=== PATIENT | male | born 1955 | race Asian ===

== ENCOUNTER 2024-06-07 17:29 | Inpatient (IN) | payer BC, MEDICARE ==
[~2024-06-07] VITALS: Ht 170.2 cm; Wt 81.8 kg
[2024-06-07] MEDS ORDERED: NS 1,000 ML IV ONE ×2 (18:30→20:45)
[2024-06-07 19:34] LABS: BASO # 0.1 K/mm3 (0.0-0.2); BASO % 0.3 % (0.0-2.0); GRAN # 14.6 K/mm3 (1.4-6.5); GRAN % 85.8 % (42.2-75.2); HEMATOCRIT 39.2 % (42.0-52.0); HEMOGLOBIN 13.3 g/dl (13.5-18.0); LYMPH # 0.9 K/mm3 (1.2-3.4); LYMPH % 5.1 % (20.0-51.0); MEAN CELL VOLUME 89 fl (80.0-100.0); MEAN CORPUSCULAR HEMOGLOBIN 30 pg (27-31); MEAN CORPUSCULAR HGB CONC 34 g/dl (33.0-37.0); MEAN PLATELET VOLUME 10.8 fl (7.4-10.4); MONO # 1.4 K/mm3 (0.1-0.6); MONO % 8.2 % (1.7-9.3); PLATELET COUNT 163 K/mm3 (130-400); RED BLOOD COUNT 4.43 M/mm3 (4.20-5.60); REDCELL DISTRIBUTION WIDTH-CV 13.6 % (11.5-14.5)
[2024-06-07 19:34] LABS: BILIRUBIN,TOTAL 1.6 mg/dL (0.2-1.2); CALCIUM 9.5 mg/dL (8.4-10.2); CREATININE, serum 1.21 mg/dL (0.72-1.25)
[2024-06-07 19:35] LABS: POTASSIUM 2.6 mEq/L (3.5-4.5)
[2024-06-07] MEDS ORDERED: Potassium Chloride 100 ML IV ONE ×2 (19:45→21:30)
[2024-06-07 20:15] LABS: COLLECTION METHOD CLEAN CATCH; URINE APPEARANCE Cloudy (CLEAR/HAZY); URINE BLOOD 3+ (NEGATIVE); URINE COLOR YELLOW (YELLOW); URINE GLUCOSE Negative (NEGATIVE); URINE KETONE Negative (NEGATIVE); URINE NITRATE Negative (NEGATIVE); URINE PROTEIN(semi-quant) 1+ (NEGATIVE); URINE UROBILINOGEN 0.2 E.U/dL (0.2-1.0)
[2024-06-07] MEDS ORDERED: cefTRIAXone 1 G in Water For Injection,Sterile 10 ML IV ONE (20:30)
[2024-06-07] MEDS ORDERED: Potassium Bicarbonate/Citrate 20 MEQ Effervescent TAB PO SCH (21:15)
[2024-06-07] MEDS ORDERED: Acetaminophen 325 MG TAB PO PRN (21:15)
[2024-06-07] MEDS ORDERED: *Potassium Replacement Protocol MC SCH (21:15)
[2024-06-07] MEDS ORDERED: NS 1,000 ML IV SCH (21:15)
[2024-06-07 22:47] VITALS: BP 167/104; PULSE 97; TEMP 98.6
[2024-06-07] MEDS ORDERED: hydrALAZINE 20 MG/ML 1 ML VIAL IV PRN (23:30)
[2024-06-07] MEDS ORDERED: Aspirin 325 MG TAB PO ONE (23:30)
[2024-06-07] MEDS ORDERED: Metoprolol Tartrate 25 MG TAB PO SCH (23:30)
[2024-06-07] MEDS ORDERED: Atorvastatin 40 MG TAB PO SCH (23:45)
[2024-06-07 23:50] VITALS: BP 170/96; PULSE 94; TEMP 98.4
[2024-06-08] VITALS (19 sets, daily range): BP systolic 80–176; BP diastolic 81–105; PULSE 71–95; TEMP 98.2–100.3
[2024-06-08 03:08] LABS: BASO # 0.1 K/mm3 (0.0-0.2); BASO % 0.3 % (0.0-2.0); EOS % 0.1 % (0.0-4.0); GRAN # 12.3 K/mm3 (1.4-6.5); GRAN % 83.7 % (42.2-75.2); HEMATOCRIT 37.6 % (42.0-52.0); MEAN CELL VOLUME 87 fl (80.0-100.0); MEAN CORPUSCULAR HEMOGLOBIN 30 pg (27-31); MEAN CORPUSCULAR HGB CONC 35 g/dl (33.0-37.0); MEAN PLATELET VOLUME 10.7 fl (7.4-10.4); MONO # 1.3 K/mm3 (0.1-0.6); MONO % 8.6 % (1.7-9.3); PLATELET COUNT 158 K/mm3 (130-400); RED BLOOD COUNT 4.32 M/mm3 (4.20-5.60); REDCELL DISTRIBUTION WIDTH-CV 13.4 % (11.5-14.5)
[2024-06-08 03:28] LABS: CALCIUM 8.6 mg/dL (8.4-10.2); CREATININE, serum 0.9 mg/dL (0.72-1.25); POTASSIUM 3.1 mEq/L (3.5-4.5)
[2024-06-08 03:40] LABS: TROPONIN-I 6 HR POST INITIAL 0.056 ng/mL (0.00-0.033)
[2024-06-08] MEDS ORDERED: Potassium Bicarbonate/Citrate 20 MEQ Effervescent TAB PO SCH (04:00)
[2024-06-08] MEDS ORDERED: ADVIL200 MG PO (08:55)
[2024-06-08] MEDS ORDERED: 1/2 NS 1,000 ML IV SCH ×2 (10:00→17:30)
[2024-06-08] MEDS ORDERED: Heparin 1,000 UNITS/ML 10 ML Multi-Dose VIAL IA SCH (17:01)
[2024-06-08] MEDS ORDERED: Nitroglycerin 100 MCG/ML (Cath Lab) 10 ML VIAL IA SCH (17:02)
[2024-06-08] MEDS ORDERED: Verapamil 2.5 MG/ML 2 ML VIAL IA SCH (17:05)
[2024-06-08] MEDS ORDERED: Heparin 1,000 UNITS/ML 10 ML Multi-Dose VIAL IV SCH (17:06)
[2024-06-08] MEDS ORDERED: Midazolam 2 MG/2 ML VIAL IV SCH (17:23)
[2024-06-08] MEDS ORDERED: fentaNYL 50 MCG/ML 2 ML VIAL IV SCH (17:24)
[2024-06-08] MEDS ORDERED: Isosorbide Mononitrate CR (24-HR) 60 MG TAB PO SCH (17:32)
[2024-06-08] MEDS ORDERED: cefTRIAXone 2 G in Water For Injection,Sterile 20 ML IV SCH (20:00)
[2024-06-08] MEDS ORDERED: Metoprolol Tartrate 50 MG TAB PO SCH (21:00)
[2024-06-08] MEDS ORDERED: Atorvastatin 80 MG TAB PO SCH (21:00)
[2024-06-09] VITALS (17 sets, daily range): BP systolic 132–162; BP diastolic 62–90; PULSE 71–86; TEMP 99.3–103
[2024-06-09 06:57] LABS: CALCIUM 9.1 mg/dL (8.4-10.2); CREATININE, serum 1.03 mg/dL (0.72-1.25)
[2024-06-09] MEDS ORDERED: Potassium Bicarbonate/Citrate 20 MEQ Effervescent TAB PO SCH (08:00)
[2024-06-09] MEDS ORDERED: *Potassium Replacement Protocol MC SCH (08:00)
[2024-06-09 08:42] LABS: BASO % 0.3 % (0.0-2.0); EOS % 0.1 % (0.0-4.0); GRAN # 6.3 K/mm3 (1.4-6.5); GRAN % 87.2 % (42.2-75.2); HEMOGLOBIN 12.3 g/dl (13.5-18.0); LYMPH # 0.3 K/mm3 (1.2-3.4); LYMPH % 4.6 % (20.0-51.0); MEAN CELL VOLUME 90 fl (80.0-100.0); MEAN CORPUSCULAR HEMOGLOBIN 30 pg (27-31); MEAN CORPUSCULAR HGB CONC 34 g/dl (33.0-37.0); MEAN PLATELET VOLUME 11.1 fl (7.4-10.4); MONO # 0.6 K/mm3 (0.1-0.6); MONO % 7.7 % (1.7-9.3); RED BLOOD COUNT 4.07 M/mm3 (4.20-5.60); REDCELL DISTRIBUTION WIDTH-CV 13.7 % (11.5-14.5)
[2024-06-09 09:25] LABS: HEMATOCRIT 36.7 % (42.0-52.0)
[2024-06-09 09:26] LABS: PLATELET COUNT 155 K/mm3 (130-400)
[2024-06-10 03:50] VITALS: BP 163/78; PULSE 76; TEMP 100.1
[2024-06-10 03:53] VITALS: BP_SYST 163
[2024-06-10 06:31] LABS: BASO % 0.3 % (0.0-2.0); EOS % 0.7 % (0.0-4.0); GRAN # 4.1 K/mm3 (1.4-6.5); GRAN % 70.5 % (42.2-75.2); HEMOGLOBIN 11.3 g/dl (13.5-18.0); LYMPH # 0.7 K/mm3 (1.2-3.4); LYMPH % 12.7 % (20.0-51.0); MEAN CELL VOLUME 89 fl (80.0-100.0); MEAN CORPUSCULAR HEMOGLOBIN 30 pg (27-31); MEAN CORPUSCULAR HGB CONC 34 g/dl (33.0-37.0); MEAN PLATELET VOLUME 11.3 fl (7.4-10.4); MONO # 0.9 K/mm3 (0.1-0.6); MONO % 15.3 % (1.7-9.3); PLATELET COUNT 166 K/mm3 (130-400); RED BLOOD COUNT 3.78 M/mm3 (4.20-5.60); REDCELL DISTRIBUTION WIDTH-CV 13.3 % (11.5-14.5)
[2024-06-10 06:32] LABS: HEMATOCRIT 33.6 % (42.0-52.0)
[2024-06-10 06:36] LABS: CALCIUM 8.9 mg/dL (8.4-10.2); CREATININE, serum 1.05 mg/dL (0.72-1.25); POTASSIUM 3.2 mEq/L (3.5-4.5)
[2024-06-10 07:15] VITALS: BP 145/73; PULSE 70; TEMP 98.6
[2024-06-10 08:28] VITALS: BP_SYST 145
[2024-06-10] MEDS ORDERED: Potassium Bicarbonate/Citrate 20 MEQ Effervescent TAB PO SCH (09:00)
[2024-06-10 11:11] VITALS: BP 152/77; PULSE 70; TEMP 98.5
[2024-06-10] MEDS ORDERED: LIPITOR 80MG80 MG PO (11:59)
[2024-06-10] MEDS ORDERED: NS 100 ML IV SCH (11:59)
[2024-06-10] MEDS ORDERED: Iohexol 300 - 100 ML VIAL IV ONE (11:59)
[2024-06-10] MEDS ORDERED: ASPIRIN E.C. 8181 MG PO (11:59)
[2024-06-10] MEDS ORDERED: IMDUR 60MG60 MG/TAB PO (12:00)
[2024-06-10] MEDS ORDERED: LOPRESSOR 550 MG/TAB PO (12:02)
[2024-06-10] MEDS ORDERED: OMNICEF 300MG300 MG PO (12:03)
[2024-06-10] MEDS ORDERED: DOXYCYCLINE 10100 MG PO (12:04)
[2024-06-10 12:19] VITALS: BP_SYST 152
[2024-06-10] MEDS ORDERED: TYLENOL 325MG325 MG PO (13:23)
== END 2024-06-10 15:59 | disposition home or self-care (01) | DRG 871 ==
LOC: COL.ER 17:29 → MEDICAL 21:18
PROVIDERS: Family Medicine; Nurse Practitioner Family; Physician Assistant; ADMIT Internal Medicine
PROC: 4A023N7 Measurement of Cardiac Sampling and Pressure, Left Heart, Percutaneous Approach (ICD-10-PCS; principal; 2024-06-07)
PROC: B2111ZZ Fluoroscopy of Multiple Coronary Arteries using Low Osmolar Contrast (ICD-10-PCS; 2024-06-07)
DX: A41.9 Sepsis, unspecified organism (principal); I21.4 Non-ST elevation (NSTEMI) myocardial infarction; I16.1 Hypertensive emergency; I50.20 Unspecified systolic (congestive) heart failure; E87.1 Hypo-osmolality and hyponatremia; I25.10 Atherosclerotic heart disease of native coronary artery without angina pectoris; E87.6 Hypokalemia; E87.8 Other disorders of electrolyte and fluid balance, not elsewhere classified; D64.9 Anemia, unspecified; I11.0 Hypertensive heart disease with heart failure
CPT/HCPCS: C1769; G0378; J0360; J0696; J1644; J1650; J2250; J3010; J3480; J7030; Q9967

== ENCOUNTER 2024-08-21 12:50 | Day surgery (SDC) | payer BC ==
[~2024-08-21] VITALS: Ht 170.2 cm; Wt 75.0 kg
[~2024-08-21 12:50] MED LIST: ADVIL200 MG PO; ASPIRIN E.C. 8181 MG PO; DOXYCYCLINE 10100 MG PO; IMDUR 60MG60 MG/TAB PO; LIPITOR 80MG80 MG PO; LOPRESSOR 550 MG/TAB PO; LR 1,000 ML IV SCH; OMNICEF 300MG300 MG PO; Ondansetron 4 MG/2 ML VIAL IV PRN; TYLENOL 325MG325 MG PO
[2024-08-21 13:38] VITALS: BP 128/88; PULSE 66; TEMP 97
[2024-08-21] MEDS ORDERED: ALDACTONE 25MG25 M1 PO (13:45)
[2024-08-21] MEDS ORDERED: FERROUS SU325 MG/TAB PO (13:46)
[2024-08-21 15:45] VITALS: BP 116/84; PULSE 72; TEMP 97
--- NOTE | 2024-08-21 15:45 | NUR ---
1545: Pt arrives to [facility] via cart, drowsy but is able to amb to chair. in room. VSS, denies pain/nausea. Offered PO juice/muffin. 1558: Dr Ivey in to talk to pt. 1615: Discharge instructions reviewed, understanding verbalized, questions invited and answered. PO tolerated without incident.
[2024-08-21 16:00] VITALS: BP 130/91; PULSE 73
== END 2024-08-21 16:20 | disposition home or self-care (01) ==
LOC: SDCO 12:50
DX: D12.5 Benign neoplasm of sigmoid colon (principal); K29.30 Chronic superficial gastritis without bleeding; D50.0 Iron deficiency anemia secondary to blood loss (chronic); Z87.891 Personal history of nicotine dependence
CPT/HCPCS: J2704